=== PATIENT | male | born 1965 | race Caucasian/White ===

== ENCOUNTER → 2016-11-06 | Outpatient (CLI) | payer BC ==
--- NOTE | 2016-11-09 12:05 | PCVCIMAG ---
APPROVED REPORT Exam: Nuclear Stress Test Indication: CAD, HIGH CA SCORE Patient Location: Out-Patient Stress Nurse: Kellen Brandon RN, Chloe Johnson RN [place] Tech:Armida Avileskrishna [facility] Ht: 5 ft 11 in HR: 69 bpm BP: 150/100 mmHg BMI: 0 Rhythm: NSR Medical History Medical History: HTN, Hyperlipidemia Medications: Simvastatin Allergies: PCN, Cipro Cardiac Risk Factors: Age Pretest Chest Pain Characteristics: No chest pain Exercise History: Physically active NM EXAM: Myocardial Perfusion REST/STRESS Imaging Protocol: Rest Tc-99m/Stress Tc-99m 1 day Resting Data Rest SPECT myocardial perfusion imaging was performed in supine position 45 minutes following the intravenous injection of 10.9 mCi of Tc-99m Sestamibi. Time of rest injection: 1245 Date: 11/06/2016 Exercise Stress At peak stress, the patient was injected intravenously with 33mCi of Tc-99m Sestamibi. Time of stress injection: 1410 Date: 11/06/2016 Administration Route: IV Administration Site: Right Hand Patient continued to exercise for 13:50 minute(s). Gated Stress SPECT was performed 45 minutes after stress injection. The images were gated to evaluate regional wall motion and calculate left ventricular ejection fraction. Study Data Post stress, the left ventricular ejection was 69%.. SSS: 0 SRS: 0 SDS: 0 TID = 0.85. Perfusion There is a medium area of moderately reduced uptake in the basal and mid segment of the inferior wall which is seen on the stress images as well as the resting images. This area thickens and moves normally and is most consistent with attenuation artifact. Wall Motion Normal left ventricular wall motion. Nuclear Conclusion 1.LOW RISK STUDY Interpreted by: Annemarie Roy MD Electronically Approved: 11/09/2016 12:04:45 Stress Test Details Stress Test: Exercise stress testing was performed using a Mateo protocol. HR Resting HR: 69 bpmMax Heart Rate (APMHR): 167 bpm Max HR Achieved: 166 bpmTarget HR (85% APMHR): 141 bpm % of APMHR: 99 Recovery HR: 107 bpm BP Resting BP: 150/100 mmHg Max BP: 219/105 mmHg Recovery BP: 174/76 mmHg ECG Resting ECG: Sinus Rhythm Stress ECG: Sinus tachycardia Maximum ST Deviation: 0.5 mm Recovery ECG: Sinus tachycardia Clinical Reason for Termination: Dyspnea, Fatigue Stress Symptoms: Leg Fatigue, Dyspnea, resolved during recovery Exercise duration: 13 min 50 sec Exercise capacity: 17.2 METs Stress ECG Conclusion 1.SUBJECTIVELY NEGATIVE FOR ISCHEMIA 2. ELECTROCARDIOGRAPHICALLY NEGATIVE FOR ISCHEMIA 3. EXCELLENT FUNCTIONAL CAPACITY <Conclusion> 1.SUBJECTIVELY NEGATIVE FOR ISCHEMIA 2. ELECTROCARDIOGRAPHICALLY NEGATIVE FOR ISCHEMIA 3. EXCELLENT FUNCTIONAL CAPACITY
== END | disposition home or self-care (01) ==
LOC: PCVCIMAG 12:17
PROVIDERS: ATTEND Internal Medicine
DX: I25.10 Atherosclerotic heart disease of native coronary artery without angina pectoris (principal); I10 Essential (primary) hypertension; E78.5 Hyperlipidemia, unspecified
CPT/HCPCS: 78452; 93017; A9500